=== PATIENT | male | born 1985 | race Caucasian/White ===

== ENCOUNTER 2021-01-22 13:34 | Emergency (ER) | payer MEDICARE, OTHER ==
[2021-01-22 13:46] VITALS: TEMP 98
--- NOTE | 2021-01-22 14:08 | ED ---
General Adult HPI - General Source: patient, family, EMS, RN notes reviewed, old records reviewed Mode of arrival: EMS <Bridger Pathak - Last Filed: 01/22/21 14:06> <Davy Medrano - Last Filed: 01/22/21 18:28> - General Chief complaint: Psychiatric Symptoms Stated complaint: mental health Time Seen by Provider: 01/22/21 13:59 - History of Present Illness Initial comments: 35-year-old male resents for psychiatric evaluation. Patient had threatened to stab himself. He does have a developmental delay. According to his father who is bedside he's had a recent medication change. He has been aggressive at home. Patient denies ingestion. Denies any self-harm. (Bridger Pathak) Review of Systems ROS Other: All systems not noted in ROS Statement are negative. <Bridger Pathak - Last Filed: 01/22/21 14:06> ROS Other: All systems not noted in ROS Statement are negative. <Davy Medrano - Last Filed: 01/22/21 18:28> ROS Statement: Those systems with pertinent positive or pertinent negative responses have been documented in the HPI. 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 Pt alone at this time. Smoking Status: Unknown if ever smoked <Bridger Pathak - Last Filed: 01/22/21 14:06> General Exam General appearance: alert, in no apparent distress Head exam: Present: atraumatic, normocephalic Eye exam: Present: normal appearance, PERRL ENT exam: Present: normal exam Neck exam: Present: normal inspection. Absent: tenderness, meningismus Respiratory exam: Present: normal lung sounds bilaterally. Absent: respiratory distress, wheezes Cardiovascular Exam: Present: regular rate, normal rhythm GI/Abdominal exam: Present: soft. Absent: distended, tenderness, guarding Extremities exam: Present: normal inspection, normal capillary refill Neurological exam: Present: alert. Absent: motor sensory deficit Psychiatric exam: Present: depressed, flat affect Skin exam: Present: warm, dry, intact <Bridger Pathak - Last Filed: 01/22/21 14:06> Course <Bridger Pathak - Last Filed: 01/22/21 14:06> Vital Signs 01/22/21 13:39 Temperature 98.0 F Pulse Rate 111 H Respiratory 18 Rate Blood Pressure 126/92 O2 Sat by Pulse 95 Oximetry - Reevaluation(s) Reevaluation #1: 01/22/21 14:07 Patient medically cleared for EPS. (Bridger Pathak) Reevaluation #2: 01/22/21 1500 Patient's care is signed out at shift change to Dr. Medrano (Bridger Pathak) Medical Decision Making <Davy Medrano - Last Filed: 01/22/21 18:28> - Medical Decision Making Patient evaluated by EPS recommended discharge with outpatient safety plan. (Davy Medrano) Disposition <Bridger Pathak - Last Filed: 01/22/21 14:06> Is patient prescribed a controlled substance at d/c from ED?: No <Davy Medrano - Last Filed: 01/22/21 18:28> Clinical Impression: Suicidal ideation Disposition: HOME SELF-CARE Condition: Fair Instructions (If sedation given, give patient instructions): Suicide Prevention (ED) Referrals: Stefani Forte DO [Primary Care Provider] - 1-2 days
[2021-01-22 19:16] VITALS: BP 122/76; PULSE 79; RESP 16
== END 2021-01-22 19:16 | disposition home or self-care (01) ==
LOC: EC 13:34 → EEVIPCON 13:34 → EC 19:16
DX: R45.851 Suicidal ideations (principal); F32.9 Major depressive disorder, single episode, unspecified; R62.50 Unspecified lack of expected normal physiological development in childhood
CPT/HCPCS: 82075; 99284

== ENCOUNTER 2021-06-08 15:57 | Emergency (ER) | payer MEDICARE, OTHER ==
[2021-06-08 16:12] VITALS: TEMP 98.1
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
[2021-06-08 22:04] LABS: Cocaine Screen,Urine Not Detected (NotDetected); Phencyclidine Screen,Urine Not Detected (NotDetected)
[2021-06-08 22:05] LABS: Amphetamine Screen,Urine Detected (NotDetected); Barbiturate Screen,Urine Not Detected (NotDetected); Benzodiazepines Screen,Urine Detected (NotDetected); Methadone Screen, Urine Not Detected (NotDetected); Opiate Screen,Urine Not Detected (NotDetected); Oxycodone Screen, Urine Not Detected (NotDetected); Tricyclic Antidepressant,Urine Not Detected (NotDetected); Urn Cannabinoid Scrn Not Detected (NotDetected)
[2021-06-09 06:42] VITALS: BP 134/78; PULSE 71; RESP 18
== END 2021-06-09 06:42 | disposition home or self-care (01) ==
LOC: EC 15:57
DX: F39 Unspecified mood [affective] disorder (principal); Z20.822 Contact with and (suspected) exposure to COVID-19; Z79.899 Other long term (current) drug therapy
CPT/HCPCS: 80306; 82075; 87635; 99283

== ENCOUNTER 2021-10-26 20:41 | Emergency (ER) | payer MEDICARE, OTHER ==
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
--- NOTE | 2021-10-26 22:00 | XR ---
EXAMINATION TYPE: XR chest 2V DATE OF EXAM: 10/26/2021 COMPARISON: 12/02/2010 HISTORY: Chest pain TECHNIQUE: FINDINGS: There is small linear density left midlung field. The other lung bains are clear. There ar e no hilar masses. Costophrenic angles are clear. Bony thorax is intact. IMPRESSION: Mild subsegmental atelectasis in the left midlung is new compared to old exam. Normal hea rt.
[2021-10-26] MEDS ORDERED: LORazepam 1 MG TAB PO PRN (23:58)
[2021-10-27] MEDS ORDERED: traZODone HCL 100 MG TAB PO PRN
[2021-10-27 08:23] VITALS: BP 146/96; PULSE 81; RESP 18; TEMP 98.4
[2021-10-27] MEDS ORDERED: AMPHETAMINE PO SCH (09:00)
[2021-10-27] MEDS ORDERED: metFORMIN 500 MG TAB PO SCH (09:00)
[2021-10-27] MEDS ORDERED: DEXTROAMPHETAMINE PO SCH (09:00)
[2021-10-27] MEDS ORDERED: levETIRAcetam 250 MG TAB PO SCH (09:00)
[2021-10-27] MEDS ORDERED: ESCITALOPRAM 5 MG TAB PO SCH (09:00)
[2021-10-27] MEDS ORDERED: ATORVASTATIN 10 MG TAB PO SCH (21:00)
[2021-10-27] MEDS ORDERED: levETIRAcetam 500 MG TAB PO SCH (21:00)
[2021-10-27] MEDS ORDERED: OLANZapine 10 MG TAB PO SCH (21:00)
== END 2021-10-27 09:09 | disposition home or self-care (01) ==
LOC: EEVIPCON 20:41 → EC 20:41
DX: F43.20 Adjustment disorder, unspecified (principal); M25.561 Pain in right knee; M25.562 Pain in left knee
CPT/HCPCS: 71046; 82075; 99283

== ENCOUNTER 2021-12-06 13:51 | Emergency (ER) | payer MEDICARE, OTHER ==
[2021-12-06 14:07] VITALS: BP 118/80; RESP 16; TEMP 98.6
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
[2021-12-06 14:59] VITALS: PULSE 67
[2021-12-06 15:11] LABS: Amphetamine Screen,Urine Detected (NotDetected); Barbiturate Screen,Urine Not Detected (NotDetected); Benzodiazepines Screen,Urine Detected (NotDetected); Cocaine Screen,Urine Not Detected (NotDetected); Methadone Screen, Urine Not Detected (NotDetected); Opiate Screen,Urine Not Detected (NotDetected); Oxycodone Screen, Urine Not Detected (NotDetected); Phencyclidine Screen,Urine Not Detected (NotDetected); Tricyclic Antidepressant,Urine Not Detected (NotDetected); Urn Cannabinoid Scrn Not Detected (NotDetected)
== END 2021-12-06 20:00 | disposition home or self-care (01) ==
LOC: EC 13:51
DX: F32.A Depression, unspecified (principal); F99 Mental disorder, not otherwise specified
CPT/HCPCS: 80306; 82075; 99285

== ENCOUNTER 2022-01-22 18:32 | Emergency (ER) | payer MEDICARE, OTHER ==
[2022-01-22 18:51] VITALS: BP 156/99; PULSE 91; RESP 16; TEMP 97.6
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
[2022-01-22] MEDS ORDERED: LORazepam 2 MG/ML INJ IM STA (20:06)
== END 2022-01-23 00:42 | disposition home or self-care (01) ==
LOC: EEVIPCON 18:32 → EC 18:32
DX: F32.A Depression, unspecified (principal); F84.9 Pervasive developmental disorder, unspecified; Z79.899 Other long term (current) drug therapy
CPT/HCPCS: 82075; 99284; 96372; J2060

== ENCOUNTER 2022-06-03 18:06 | Emergency (ER) | payer MEDICARE, OTHER ==
[2022-06-03 19:13] LABS: Amphetamine Screen,Urine Not Detected (NotDetected); Barbiturate Screen,Urine Not Detected (NotDetected); Benzodiazepines Screen,Urine Not Detected (NotDetected); Cocaine Screen,Urine Not Detected (NotDetected); Methadone Screen, Urine Not Detected (NotDetected); Opiate Screen,Urine Not Detected (NotDetected); Oxycodone Screen, Urine Not Detected (NotDetected); Phencyclidine Screen,Urine Not Detected (NotDetected); Tricyclic Antidepressant,Urine Not Detected (NotDetected); Urn Cannabinoid Scrn Not Detected (NotDetected)
[2022-06-03 20:00] VITALS: BP 127/84; PULSE 85; RESP 14; TEMP 97.8
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
== END 2022-06-03 21:24 | disposition home or self-care (01) ==
LOC: EC 18:06
DX: R45.86 Emotional lability (principal)
CPT/HCPCS: 80306; 82075; 99285

== ENCOUNTER 2023-01-31 10:38 | Emergency (ER) | payer MEDICARE, OTHER ==
[2023-01-31] MEDS ORDERED: SODIUM CHLORIDE 0.9% 1,000 ML IV STA (10:52)
[2023-01-31] MEDS ORDERED: ONDANSETRON 4 MG/2 ML VIAL IVP STA (10:54)
--- NOTE | 2023-01-31 10:59 | ED ---
Seizure HPI - General Chief Complaint: Seizure Stated Complaint: Seizure Time Seen by Provider: 01/31/23 10:41 Source: patient, family, EMS, RN notes reviewed Mode of arrival: EMS Limitations: physical limitation - History of Present Illness Initial Comments: This is a 37-year-old male who presents to the emergency department for a seizure. Patient was at home this morning, and his father states that he had 2 seizures, at approximately 5 AM and 7:30 AM. He did completely recover between each seizure. He did not sustain any injuries, and was in a recliner when they happened. His father is unsure how long the seizures lasted. He was postictal afterwards. He has a history of seizures, however his father is unsure when his last seizure was. He was just discharged from [facility] a couple of days ago, and his father is also unsure what medication he is supposed to be taking. Patient does have cognitive impairment and functions at the level of a 7-year-old, and is having difficulty providing information himself. EMS did put him on supplemental oxygen. Patient unable to understand the question as to whether or not he has difficulty breathing. Denies any pain. MD Complaint: seizure Description of Episode: loss of consciousness, tonic-clonic movement - Related Data Home Medications Medication Instructions Recorded Confirmed ARIPiprazole [Abilify] 20 mg PO HS 01/22/22 01/22/22 Cholecalciferol (Vitamin D3) 125 mcg PO DAILY 01/22/22 01/22/22 [Vitamin D3 (125 MCG = 5,000 IU)] Dextroamphetamine/Amphetamine 5 mg PO DAILY 01/22/22 01/22/22 [Adderall Xr] Escitalopram [Lexapro] 5 mg PO DAILY 01/22/22 01/22/22 LORazepam [Ativan] 1 mg PO BID PRN 01/22/22 01/22/22 Nitroglycerin Sl Tabs [Nitrostat] 0.4 mg SUBLINGUAL Q5M PRN 01/22/22 01/22/22 OLANZapine 20 mg PO HS 01/22/22 01/22/22 Simvastatin [Zocor] 10 mg PO DAILY@1700 01/22/22 01/22/22 Vitamin B Complex 1 cap PO DAILY 01/22/22 01/22/22 levETIRAcetam [Keppra] 250 mg PO TID 01/22/22 01/22/22 metFORMIN HCL [Glucophage] 1,000 mg PO BID 01/22/22 01/22/22 traZODone HCL [Desyrel] 100 mg PO HS 01/22/22 01/22/22 Allergies Allergy/AdvReac Type Severity Reaction Status Date / Time No Known Allergies Allergy Verified 01/31/23 12:32 Review of Systems ROS Statement: Those systems with pertinent positive or pertinent negative responses have been documented in the HPI. ROS Other: All systems not noted in ROS Statement are negative. 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 History of Any Multi-Drug Resistant Organisms: None Reported Past Surgical History: No Surgical Hx Reported Past Psychological History: No Psychological Hx Reported Smoking Status: Never smoker Past Alcohol Use History: None Reported Past Drug Use History: None Reported General Exam Limitations: physical limitation General appearance: alert, in no apparent distress Head exam: Present: atraumatic, normocephalic, normal inspection Respiratory exam: Present: normal lung sounds bilaterally. Absent: respiratory distress, wheezes, rales, rhonchi, stridor Cardiovascular Exam: Present: regular rate, normal rhythm, normal heart sounds. Absent: systolic murmur, diastolic murmur, rubs, gallop, clicks Neurological exam: Present: alert Psychiatric exam: Present: normal affect, normal mood Skin exam: Present: warm, dry, intact, normal color. Absent: rash Course Vital Signs 01/31/23 01/31/23 01/31/23 10:45 11:00 12:00 Temperature 99.7 F H Pulse Rate 113 H 108 H 106 H Respiratory 22 16 16 Rate Blood Pressure 117/79 123/85 117/79 O2 Sat by Pulse 90 L 92 L 95 Oximetry 01/31/23 01/31/23 01/31/23 12:30 13:00 13:30 Temperature Pulse Rate 98 101 H 102 H Respiratory 16 14 14 Rate Blood Pressure 139/80 115/70 102/74 O2 Sat by Pulse 99 99 94 L Oximetry 01/31/23 01/31/23 01/31/23 13:35 14:00 14:30 Temperature 97.7 F Pulse Rate 100 101 H 103 H Respiratory 20 14 14 Rate Blood Pressure 114/65 108/68 130/80 O2 Sat by Pulse 94 L 95 95 Oximetry 01/31/23 01/31/23 15:00 15:30 Temperature 97.2 F L Pulse Rate 99 98 Respiratory 14 14 Rate Blood Pressure 132/81 113/71 O2 Sat by Pulse 96 96 Oximetry Medical Decision Making - Medical Decision Making This is a 37-year-old male who presents to the emergency department for a s eizure. Was pt. sent in by a medical professional or institution? @ -No Did you speak to anyone other than the patient for history? @ -His father provided the majority of the information, with the patient just saying that he was not experiencing any pain. Did you review nursing and triage notes? @ -Yes, and I agree, it is accurate with regards to the patient's symptoms. Were old charts reviewed? @ -No Differential Diagnosis? @ -Differential Seizure: Recurrent seizure disorder, febrile seizure, alcohol withdrawal, stimulants, meningitis, encephalitis, intercranial hemorrhage, intracranial tumor, stroke, eclampsia, thyrotoxicosis, hypocalcemia, hyponatremia, hypernatremia, hypomagnesemia, psychogenic, this is not meant to be an all-inclusive list. EKG interpreted by me (3pts min.)? @ -EKG interpreted by me demonstrating the following: Sinus tachycardia. Ventricular rate 108 beats per minute, WI interval 156 ms, QRS duration 106 ms, QTC 404 ms. X-rays interpreted by me (1pt min.)? @ -Chest x-ray obtained, my interpretation identifies no localized consolidations or infiltrates. CT interpreted by me (1pt min.)? @ -Not obtained U/S interpreted by me (1pt. min.)? @ -Not obtained What testing was considered but not performed? (CT, X-rays, U/S, labs)? Why? @ -None What meds were considered but not given? Why? @ -None Did you discuss the management of the patient with other professionals? @ -No Did you reconcile home meds? @ -No Was smoking cessation discussed for >3mins.? @ -No Was critical care preformed (if so, how long)? @ -No Were there social determinants of health that impacted care today? How? (Homelessness, low income, unemployed, alcoholism, drug addiction, transportation, low edu. Level, literacy, decrease access to med. care, intermediate, rehab)? @ -No Was there de-escalation of care discussed even if they declined? (Discuss DNR or withdrawal of care, Hospice)? @ -No What co-morbidities impacted this encounter? (DM, HTN, Smoking, COPD, CAD, Cancer, CVA, Hep., AIDS, mental health diagnosis, sleep apnea, morbid obesity)? @ -Seizure disorder, mental retardation Was patient admitted / discharged? @ -Discharged. Lab work obtained revealing mild leukocytosis and elevated lactic acid, consistent with the recent seizure. Lab work was otherwise nonactionable. Chest x-ray reveals no acute process. He was given a liter bolus of IV fluids and Zofran, as he had previously thrown up on himself during the seizure. Per patient's family, he was back to baseline. Discussed with the family that he can be safely discharged home. He is instructed to continue taking his medications as prescribed and follow up with his PCP and neurologist. Undiagnosed new problem with uncertain prognosis? @ -None Drug Therapy requiring intensive monitoring for toxicity (Heparin, Nitro, Insulin, Cardizem)? @ -None Were any procedures done? @ -None Diagnosis/symptom? @ -Generalized seizure Acute, or Chronic, or Acute on Chronic? @ -Acute Uncomplicated (without systemic symptoms) or Complicated (systemic symptoms)? @ -Uncomplicated Side effects of treatment? @ -None Exacerbation, Progression, or Severe Exacerbation] @ -Not applicable Poses a threat to life or bodily function? @ -No Return precautions reviewed in depth, the patient is instructed to return to the emergency department with any new, worsening, or concerning symptoms. Patient's father verbalized understanding. This case was discussed in detail with the attending ED physician, Dr. Pathak. Presentation, findings, and treatment plan discussed in detail as well. - Lab Data Result diagrams: 01/31/23 11:00 01/31/23 11:00 Lab Results 01/31/23 01/31/23 01/31/23 Range/Units 11:00 11:00 11:00 WBC 13.3 H (3.8-10.6) k/uL RBC 5.27 (4.30-5.90) m/uL Hgb 14.0 (13.0-17.5) gm/dL Hct 42.2 (39.0-53.0) % MCV 80.0 (80.0-100.0) fL MCH 26.6 (25.0-35.0) pg MCHC 33.2 (31.0-37.0) g/dL RDW 14.1 (11.5-15.5) % Plt Count 253 (150-450) k/uL MPV 8.4 Neutrophils % 79 % Lymphocytes % 13 % Monocytes % 6 % Eosinophils % 1 % Basophils % 0 % Neutrophils # 10.5 H (1.3-7.7) k/uL Lymphocytes # 1.8 (1.0-4.8) k/uL Monocytes # 0.8 (0-1.0) k/uL Eosinophils # 0.1 (0-0.7) k/uL Basophils # 0.0 (0-0.2) k/uL Sodium 140 (137-145) mmol/L Potassium 4.0 (3.5-5.1) mmol/L Chloride 105 (98-107) mmol/L Carbon Dioxide 23 (22-30) mmol/L Anion Gap 12 mmol/L BUN 12 (9-20) mg/dL Creatinine 0.83 (0.66-1.25) mg/dL Est GFR (CKD-EPI)AfAm >90 (>60 ml/min/1.73 sqM) Est GFR (CKD-EPI)NonAf >90 (>60 ml/min/1.73 sqM) Glucose 123 H (74-99) mg/dL Lactic Ac Sepsis Rflx Plasma Lactic Acid Rodo (0.7-2.0) mmol/L Calcium 9.3 (8.4-10.2) mg/dL Magnesium 2.3 (1.6-2.3) mg/dL Total Bilirubin 0.3 (0.2-1.3) mg/dL AST 24 (17-59) U/L ALT 26 (4-49) U/L Alkaline Phosphatase 89 (38-126) U/L Creatine Kinase 52 L (55-170) U/L Total Protein 7.5 (6.3-8.2) g/dL Albumin 4.3 (3.5-5.0) g/dL Urine Color Yellow Urine Appearance Clear (Clear) Urine pH 5.5 (5.0-8.0) Ur Specific [place] 1.023 (1.001-1.035) Urine Protein Trace H (Negative) Urine Glucose (UA) Negative (Negative) Urine Ketones 1+ H (Negative) Urine Blood Negative (Negative) Urine Nitrite Negative (Negative) Urine Bilirubin Negative (Negative) Urine Urobilinogen <2.0 (<2.0) mg/dL Ur Leukocyte Esterase Negative (Negative) Influenza Type A (PCR) (Not Detectd) Influenza Type B (PCR) (Not Detectd) RSV (PCR) (Not Detectd) SARS-CoV-2 (PCR) (Not Detectd) 01/31/23 01/31/23 01/31/23 Range/Units 11:00 11:00 12:56 WBC (3.8-10.6) k/uL RBC (4.30-5.90) m/uL Hgb (13.0-17.5) gm/dL Hct (39.0-53.0) % MCV (80.0-100.0) fL MCH (25.0-35.0) pg MCHC (31.0-37.0) g/dL RDW (11.5-15.5) % Plt Count (150-450) k/uL MPV Neutrophils % % Lymphocytes % % Monocytes % % Eosinophils % % Basophils % % Neutrophils # (1.3-7.7) k/uL Lymphocytes # (1.0-4.8) k/uL Monocytes # (0-1.0) k/uL Eosinophils # (0-0.7) k/uL Basophils # (0-0.2) k/uL Sodium (137-145) mmol/L Potassium (3.5-5.1) mmol/L Chloride (98-107) mmol/L Carbon Dioxide (22-30) mmol/L Anion Gap mmol/L BUN (9-20) mg/dL Creatinine (0.66-1.25) mg/dL Est GFR (CKD-EPI)AfAm (>60 ml/min/1.73 sqM) Est GFR (CKD-EPI)NonAf (>60 ml/min/1.73 sqM) Glucose (74-99) mg/dL Lactic Ac Sepsis Rflx Y Plasma Lactic Acid Rodo 3.6 H* (0.7-2.0) mmol/L Calcium (8.4-10.2) mg/dL Magnesium (1.6-2.3) mg/dL Total Bilirubin (0.2-1.3) mg/dL AST (17-59) U/L ALT (4-49) U/L Alkaline Phosphatase (38-126) U/L Creatine Kinase (55-170) U/L Total Protein (6.3-8.2) g/dL Albumin (3.5-5.0) g/dL Urine Color Urine Appearance (Clear) Urine pH (5.0-8.0) Ur Specific [place] (1.001-1.035) Urine Protein (Negative) Urine Glucose (UA) (Negative) Urine Ketones (Negative) Urine Blood (Negative) Urine Nitrite (Negative) Urine Bilirubin (Negative) Urine Urobilinogen (<2.0) mg/dL Ur Leukocyte Esterase (Negative) Influenza Type A (PCR) Not Detected (Not Detectd) Influenza Type B (PCR) Not Detected (Not Detectd) RSV (PCR) Not Detected (Not Detectd) SARS-CoV-2 (PCR) Not Detected (Not Detectd) - Radiology Data Radiology results: report reviewed, image reviewed Disposition Clinical Impression: Generalized seizure Disposition: HOME SELF-CARE Instructions (If sedation given, give patient instructions): Seizure/Epilepsy Discharge Instructions & Follow-Up Additional Instructions: Return to the emergency department with any new, worsening, or concerning symptoms. Make sure that you are taking your seizure medication as prescribed. Follow up with your primary care provider in 1-2 days. Is patient prescribed a controlled substance at d/c from ED?: No Referrals: Lalo Lacey MD [Primary Care Provider] - 1-2 days
[2023-01-31 12:08] LABS: Basophils % (A) 0 %; Eosinophils # (A) 0.1 k/uL (0-0.7); Eosinophils % (A) 1 %; HCT 42.2 % (39.0-53.0); Lymphocytes # (A) 1.8 k/uL (1.0-4.8); Lymphocytes % (A) 13 %; MCH 26.6 pg (25.0-35.0); MCHC 33.2 g/dL (31.0-37.0); Mean Platelet Volume 8.4; Monocytes # (A) 0.8 k/uL (0-1.0); Monocytes % (A) 6 %; Neutrophils # (A) 10.5 k/uL (1.3-7.7); Neutrophils % (A) 79 %; Platelet Count 253 k/uL (150-450); RBC 5.27 m/uL (4.30-5.90); RDW 14.1 % (11.5-15.5); WBC 13.3 k/uL (3.8-10.6)
[2023-01-31 12:35] LABS: Appearance,Urine Clear (Clear); Bilirubin,Urine Negative (Negative); Blood,Urine Negative (Negative); Color,Urine Yellow; Glucose,Urine (UA) Negative (Negative); Ketones,Urine 1+ (Negative); Leukocyte Esterase,Urine Negative (Negative); Nitrite,Urine Negative (Negative); PH, Urine 5.5 (5.0-8.0); Protein,Urine Trace (Negative); Specific Gravity,Urine 1.023 (1.001-1.035); Urobilinogen,Urine <2.0 mg/dL (<2.0)
[2023-01-31 12:36] LABS: ALT 26 U/L (4-49); AST 24 U/L (17-59); African American GFR (CKD) >90 (>60 ml/min/1.73 sqM); Albumin 4.3 g/dL (3.5-5.0); Alkaline Phosphatase 89 U/L (38-126); Anion Gap 12 mmol/L; Blood Urea Nitrogen 12 mg/dL (9-20); Calcium 9.3 mg/dL (8.4-10.2); Carbon Dioxide 23 mmol/L (22-30); Chloride 105 mmol/L (98-107); Creatine Kinase 52 U/L (55-170); Glucose 123 mg/dL (74-99); Magnesium 2.3 mg/dL (1.6-2.3); Non-African American GFR(CKD) >90 (>60 ml/min/1.73 sqM); Sodium 140 mmol/L (137-145); Total Bilirubin 0.3 mg/dL (0.2-1.3); Total Protein 7.5 g/dL (6.3-8.2)
--- NOTE | 2023-01-31 12:51 | XR ---
EXAMINATION TYPE: XR chest 2V DATE OF EXAM: 01/31/2023 COMPARISON: 10/26/2021 INDICATION: Seizure, low oxygen TECHNIQUE: Frontal and lateral views of the chest are obtained. FINDINGS: The heart size is enlarged. The pulmonary vasculature is normal. The lungs are clear. IMPRESSION: 1. Cardiomegaly. 2. No acute pulmonary process
[2023-01-31 15:45] VITALS: BP 113/71; PULSE 98; RESP 14; TEMP 97.2
== END 2023-01-31 15:40 | disposition home or self-care (01) ==
LOC: EC 10:38
DX: G40.409 Other generalized epilepsy and epileptic syndromes, not intractable, without status epilepticus (principal); Z20.822 Contact with and (suspected) exposure to COVID-19
CPT/HCPCS: 36415; 93005; 80053; 82550; 83605; 83735; 85025; 81003; 87636; 71046; 99285; 96374; 96361; J2405

== ENCOUNTER 2024-02-04 20:08 | Emergency (ER) | payer BC, MEDICARE, OTHER | END 2024-02-05 04:01 | disposition home or self-care (01) | LOC: EC 20:08 | DX: R45.851 Suicidal ideations (principal) | CPT/HCPCS: 99284 ==

== ENCOUNTER 2024-03-11 01:49 | Emergency (ER) | payer MEDICARE, OTHER, BC ==
--- NOTE | 2024-03-11 02:22 | ED ---
General Adult HPI - General Chief complaint: Seizure Stated complaint: Seizure Time Seen by Provider: 03/11/24 01:50 Source: patient, family, RN notes reviewed, old records reviewed Mode of arrival: EMS Limitations: altered mental status, physical limitation - History of Present Illness Initial comments: 38-year-old male presenting with father for evaluation. Paramedics had been called for lift assist. Patient he had been difficult to get up after sliding out of his chair. There was no witnessed seizure activity but paramedics did report a concern for seizure with postictal state. History is obtained predominantly from the father who is at bedside. Patient history is limited due to cognitive delay. - Related Data Home Medications Medication Instructions Recorded Confirmed ARIPiprazole [Abilify] 20 mg PO HS 01/22/22 01/22/22 Cholecalciferol (Vitamin D3) 125 mcg PO DAILY 01/22/22 01/22/22 [Vitamin D3 (125 MCG = 5,000 IU)] Dextroamphetamine/Amphetamine 5 mg PO DAILY 01/22/22 01/22/22 [Adderall Xr] Escitalopram [Lexapro] 5 mg PO DAILY 01/22/22 01/22/22 LORazepam [Ativan] 1 mg PO BID PRN 01/22/22 01/22/22 Nitroglycerin Sl Tabs [Nitrostat] 0.4 mg SUBLINGUAL Q5M PRN 01/22/22 01/22/22 OLANZapine 20 mg PO HS 01/22/22 01/22/22 Simvastatin [Zocor] 10 mg PO DAILY@1700 01/22/22 01/22/22 Vitamin B Complex 1 cap PO DAILY 01/22/22 01/22/22 levETIRAcetam [Keppra] 250 mg PO TID 01/22/22 01/22/22 metFORMIN HCL [Glucophage] 1,000 mg PO BID 01/22/22 01/22/22 traZODone HCL [Desyrel] 100 mg PO HS 01/22/22 01/22/22 Allergies Allergy/AdvReac Type Severity Reaction Status Date / Time No Known Allergies Allergy Verified 01/31/23 12:32 Review of Systems ROS Statement: Those systems with pertinent positive or pertinent negative responses have been documented in the HPI. ROS Other: All systems not noted in ROS Statement are negative. 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 History of Any Multi-Drug Resistant Organisms: None Reported Past Surgical History: No Surgical Hx Reported Past Psychological History: No Psychological Hx Reported Smoking Status: Never smoker Past Alcohol Use History: None Reported Past Drug Use History: None Reported General Exam Limitations: altered mental status, physical limitation General appearance: alert, in no apparent distress Head exam: Present: atraumatic, normocephalic Eye exam: Present: normal appearance, PERRL ENT exam: Present: mucous membranes moist, other (No tongue abrasion or laceration) Respiratory exam: Present: normal lung sounds bilaterally. Absent: respiratory distress, wheezes Cardiovascular Exam: Present: regular rate, normal rhythm GI/Abdominal exam: Present: soft. Absent: distended, tenderness Neurological exam: Present: alert. Absent: motor sensory deficit Skin exam: Present: warm, dry, intact. Absent: cyanosis, diaphoretic Course Vital Signs 03/11/24 01:54 Temperature 97.5 F L Pulse Rate 93 Respiratory 16 Rate Blood Pressure 148/97 O2 Sat by Pulse 97 Oximetry Medical Decision Making - Medical Decision Making Was pt. sent in by a medical professional or institution (, PA, OUTBOUND SALES AGENT, urgent care, hospital, or intermediate...) When possible be specific @ -No Did you speak to anyone other than the patient for history (EMS, parent, family, police, friend...)? What history was obtained from this source @ -No Did you review nursing and triage notes (agree or disagree)? Why? @ -I reviewed and agree with nursing and triage notes Were old charts reviewed (outside hosp., previous admission, EMS record, old EKG, old radiological studies, urgent care reports/EKG's, intermediate records)? Report findings @ -No old charts were reviewed Differential Weakness: Hypoglycemia, shock, sepsis, hyponatremia, anemia, infection, DE, ETOH, adverse medicine reaction, overdose, stroke, this is not meant to be an all-inclusive list. Differential Seizure: Recurrent seizure disorder, febrile seizure, alcohol withdrawal, stimulants, meningitis, encephalitis, intercranial hemorrhage, intracranial tumor, stroke, eclampsia, thyrotoxicosis, hypocalcemia, hyponatremia, hypernatremia, hypomagnesemia, psychogenic, this is not meant to be an all-inclusive list. EKG interpreted by me (3pts min.). @ -[Sinus rhythm rate of 92, CT interval 140, QRS duration 109, QTc 412 X-rays interpreted by me (1pt min.). @ -None done CT interpreted by me (1pt min.). @ -None done U/S interpreted by me (1pt. min.). @ -None done What testing was considered but not performed or refused? (CT, X-rays, U/S, labs)? Why? @ -None What meds were considered but not given or refused? Why? @ -None Did you discuss the management of the patient with other professionals (professionals i.e. Dr., PA, OUTBOUND SALES AGENT, lab, RT, psych nurse, adoption social worker, electronics mechanic apprentice, teacher, surveillance sensor officer, sample case porter)? Give summary @ -No Was smoking cessation discussed for >3mins.? @ -No Was critical care preformed (if so, how long)? @ -No Were there social determinants of health that impacted care today? How? (Homele ssness, low income, unemployed, alcoholism, drug addiction, transportation, low edu. Level, literacy, decrease access to med. care, [facility], rehab)? @ -No Was there de-escalation of care discussed even if they declined (Discuss DNR or withdrawal of care, Hospice)? DNR status @ -No What co-morbidities impacted this encounter? (DM, HTN, Smoking, COPD, CAD, Cancer, CVA, ARF, Chemo, Hep., AIDS, mental health diagnosis, sleep apnea, morbid obesity)? @ -[Cognitive delay, diabetes Was patient admitted / discharged? Hospital course, mention meds given and route, prescriptions, significant lab abnormalities, going to OR and other pertinent info. @38-year-old male with weakness, cognitive delay, history limited. Vital signs are stable. The patient is in sinus rhythm. I did obtain laboratory test including CBC, CMP, troponin level. Testing is unremarkable. Father is reassured and is comfortable taking the patient home with return parameters. Undiagnosed new problem with uncertain prognosis? @ -No Drug Therapy requiring intensive monitoring for toxicity (Heparin, Nitro, Insulin, Cardizem)? @ -No Were any procedures done? @ -No Diagnosis/symptom? @Weakness Acute, or Chronic, or Acute on Chronic? @ -Acute Uncomplicated (without systemic symptoms) or Complicated (systemic symptoms)? @ -Default Side effects of treatment? @ -No Exacerbation, Progression, or Severe Exacerbation? @ -No Poses a threat to life or bodily function? How? (Chest pain, USA, DE, pneumonia, PE, COPD, DKA, ARF, appy, cholecystitis, CVA, Diverticulitis, Homicidal, Suicidal, threat to staff... and all critical care pts) @ -Low risk at this time - Lab Data Result diagrams: 03/11/24 02:47 03/11/24 02:47 Lab Results 03/11/24 03/11/24 03/11/24 Range/Units 02:05 02:47 02:47 WBC 12.2 H (3.8-10.6) k/uL RBC 5.19 (4.30-5.90) m/uL Hgb 13.7 (13.0-17.5) gm/dL Hct 41.1 (39.0-53.0) % MCV 79.2 L (80.0-100.0) fL MCH 26.3 (25.0-35.0) pg MCHC 33.2 (31.0-37.0) g/dL RDW 15.0 (11.5-15.5) % Plt Count 236 (150-450) k/uL MPV 8.3 Neutrophils % 67 % Lymphocytes % 22 % Monocytes % 5 % Eosinophils % 5 % Basophils % 1 % Neutrophils # 8.2 H (1.3-7.7) k/uL Lymphocytes # 2.7 (1.0-4.8) k/uL Monocytes # 0.6 (0-1.0) k/uL Eosinophils # 0.5 (0-0.7) k/uL Basophils # 0.1 (0-0.2) k/uL PT (10.0-12.5) sec INR (<1.2) APTT (22.0-30.0) sec Sodium 140 (137-145) mmol/L Potassium 3.9 (3.5-5.1) mmol/L Chloride 104 (98-107) mmol/L Carbon Dioxide 26 (22-30) mmol/L Anion Gap 10 mmol/L BUN 11 (9-20) mg/dL Creatinine 0.78 (0.66-1.25) mg/dL Est GFR (CKD-EPI)AfAm >90 (>60 ml/min/1.73 sqM) Est GFR (CKD-EPI)NonAf >90 (>60 ml/min/1.73 sqM) Glucose 172 H (74-99) mg/dL Calcium 9.3 (8.4-10.2) mg/dL Magnesium 2.0 (1.6-2.3) mg/dL Total Bilirubin 0.4 (0.2-1.3) mg/dL AST 21 (17-59) U/L ALT 23 (4-49) U/L Alkaline Phosphatase 87 (38-126) U/L Troponin I (0.000-0.034) ng/mL Total Protein 6.9 (6.3-8.2) g/dL Albumin 4.0 (3.5-5.0) g/dL Influenza Type A (PCR) Not Detected (Not Detectd) Influenza Type B (PCR) Not Detected (Not Detectd) RSV (PCR) Not Detected (Not Detectd) SARS-CoV-2 (PCR) Not Detected (Not Detectd) 03/11/24 03/11/24 Range/Units 02:47 02:47 WBC (3.8-10.6) k/uL RBC (4.30-5.90) m/uL Hgb (13.0-17.5) gm/dL Hct (39.0-53.0) % MCV (80.0-100.0) fL MCH (25.0-35.0) pg MCHC (31.0-37.0) g/dL RDW (11.5-15.5) % Plt Count (150-450) k/uL MPV Neutrophils % % Lymphocytes % % Monocytes % % Eosinophils % % Basophils % % Neutrophils # (1.3-7.7) k/uL Lymphocytes # (1.0-4.8) k/uL Monocytes # (0-1.0) k/uL Eosinophils # (0-0.7) k/uL Basophils # (0-0.2) k/uL PT 10.1 (10.0-12.5) sec INR 0.9 (<1.2) APTT 31.9 H (22.0-30.0) sec Sodium (137-145) mmol/L Potassium (3.5-5.1) mmol/L Chloride (98-107) mmol/L Carbon Dioxide (22-30) mmol/L Anion Gap mmol/L BUN (9-20) mg/dL Creatinine (0.66-1.25) mg/dL Est GFR (CKD-EPI)AfAm (>60 ml/min/1.73 sqM) Est GFR (CKD-EPI)NonAf (>60 ml/min/1.73 sqM) Glucose (74-99) mg/dL Calcium (8.4-10.2) mg/dL Magnesium (1.6-2.3) mg/dL Total Bilirubin (0.2-1.3) mg/dL AST (17-59) U/L ALT (4-49) U/L Alkaline Phosphatase (38-126) U/L Troponin I <0.012 (0.000-0.034) ng/mL Total Protein (6.3-8.2) g/dL Albumin (3.5-5.0) g/dL Influenza Type A (PCR) (Not Detectd) Influenza Type B (PCR) (Not Detectd) RSV (PCR) (Not Detectd) SARS-CoV-2 (PCR) (Not Detectd) Disposition Clinical Impression: Weakness Disposition: HOME SELF-CARE Condition: Fair Instructions (If sedation given, give patient instructions): Weakness (ED) Is patient prescribed a controlled substance at d/c from ED?: No Referrals: Tim Forte MD [Primary Care Provider] - 1-2 days Time of Disposition: 03:52
[2024-03-11 03:10] LABS: Basophils # (A) 0.1 k/uL (0-0.2); Basophils % (A) 1 %; Eosinophils # (A) 0.5 k/uL (0-0.7); Eosinophils % (A) 5 %; HCT 41.1 % (39.0-53.0); HGB 13.7 gm/dL (13.0-17.5); Lymphocytes # (A) 2.7 k/uL (1.0-4.8); Lymphocytes % (A) 22 %; MCH 26.3 pg (25.0-35.0); MCHC 33.2 g/dL (31.0-37.0); MCV 79.2 fL (80.0-100.0); Mean Platelet Volume 8.3; Monocytes # (A) 0.6 k/uL (0-1.0); Monocytes % (A) 5 %; Neutrophils # (A) 8.2 k/uL (1.3-7.7); Neutrophils % (A) 67 %; Platelet Count 236 k/uL (150-450); RBC 5.19 m/uL (4.30-5.90); WBC 12.2 k/uL (3.8-10.6)
[2024-03-11 03:24] LABS: ALT 23 U/L (4-49); AST 21 U/L (17-59); African American GFR (CKD) >90 (>60 ml/min/1.73 sqM); Alkaline Phosphatase 87 U/L (38-126); Anion Gap 10 mmol/L; Blood Urea Nitrogen 11 mg/dL (9-20); Calcium 9.3 mg/dL (8.4-10.2); Carbon Dioxide 26 mmol/L (22-30); Chloride 104 mmol/L (98-107); Glucose 172 mg/dL (74-99); Non-African American GFR(CKD) >90 (>60 ml/min/1.73 sqM); Potassium 3.9 mmol/L (3.5-5.1); Sodium 140 mmol/L (137-145); Total Bilirubin 0.4 mg/dL (0.2-1.3); Total Protein 6.9 g/dL (6.3-8.2)
[2024-03-11 03:46] LABS: INR 0.9 (<1.2); Partial Thromboplastin Time 31.9 sec (22.0-30.0); Prothrombin Time 10.1 sec (10.0-12.5)
[2024-03-11 04:46] VITALS: BP 143/92; PULSE 86; RESP 18; TEMP 98.3
== END 2024-03-11 04:46 | disposition home or self-care (01) ==
LOC: EC 01:49
CPT/HCPCS: 36415; 80053; 83735; 84484; 85025; 85610; 85730; 87636; 93005; 99284

== ENCOUNTER 2024-03-11 10:01 | Emergency (ER) | payer MEDICARE, OTHER ==
[2024-03-11 10:14] VITALS: RESP 18
[2024-03-11 10:15] LABS: Glucose,Whole Blood 164 mg/dL (70-110)
--- NOTE | 2024-03-11 11:29 | ED ---
Altered Mental Status HPI - General Chief Complaint: Altered Mental Status Stated Complaint: AMS Time Seen by Provider: 03/11/24 10:20 Source: patient, RN notes reviewed Mode of arrival: EMS Limitations: no limitations - History of Present Illness Initial Comments: This is a 38-year-old male presents emergency department via EMS for chief complaint of altered mental status. History is quite limited due to patient's intellectual disability. Patient was evaluated in the emergency department earlier today for suppose it seizure and was discharged home in stable condition. It was reported that patient has been weak since discharge and had difficulty getting up where her family called EMS for weakness. Patient believes that he had another seizure however family denies seizure-like activity. - Related Data Home Medications Medication Instructions Recorded Confirmed Nitroglycerin Sl Tabs [Nitrostat] 0.4 mg SUBLINGUAL Q5M PRN 01/22/22 03/11/24 OLANZapine 20 mg PO HS 01/22/22 03/11/24 metFORMIN HCL [Glucophage] 1,000 mg PO BID 01/22/22 03/11/24 Benztropine Mesylate [Cogentin] 1 mg PO BID 03/11/24 03/11/24 Escitalopram [Lexapro] 10 mg PO DAILY 03/11/24 03/11/24 Simvastatin [Zocor] 20 mg PO HS 03/11/24 03/11/24 clonazePAM [KlonoPIN] 1 mg PO TID 03/11/24 03/11/24 haloperidoL [Haldol] 10 mg PO BID 03/11/24 03/11/24 Allergies Allergy/AdvReac Type Severity Reaction Status Date / Time No Known Allergies Allergy Verified 03/11/24 12:25 Review of Systems ROS Statement: Those systems with pertinent positive or pertinent negative responses have been documented in the HPI. ROS Other: All systems not noted in ROS Statement are negative. 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 History of Any Multi-Drug Resistant Organisms: None Reported Past Surgical History: No Surgical Hx Reported Past Psychological History: No Psychological Hx Reported Smoking Status: Never smoker Past Alcohol Use History: None Reported Past Drug Use History: None Reported General Exam Limitations: no limitations (intellecutal disability) General appearance: alert, in no apparent distress Head exam: Present: atraumatic, normocephalic, normal inspection Eye exam: Present: normal appearance, PERRL, EOMI. Absent: scleral icterus, conjunctival injection, periorbital swelling Neck exam: Present: normal inspection. Absent: tenderness, meningismus, lymphadenopathy Respiratory exam: Present: normal lung sounds bilaterally. Absent: respiratory distress, wheezes, rales, rhonchi, stridor Cardiovascular Exam: Present: regular rate, normal rhythm, normal heart sounds. Absent: systolic murmur, diastolic murmur, rubs, gallop, clicks GI/Abdominal exam: Present: soft, normal bowel sounds. Absent: distended, tenderness, guarding, rebound, rigid Extremities exam: Present: normal inspection, full ROM, normal capillary refill. Absent: tenderness, pedal edema, joint swelling, calf tenderness Back exam: Present: normal inspection Skin exam: Present: warm, dry, intact, normal color. Absent: rash Course Vital Signs 03/11/24 03/11/24 03/11/24 10:05 10:14 11:28 Temperature 98.1 F Pulse Rate 93 94 98 Respiratory 18 18 18 Rate Blood Pressure 133/99 148/98 136/104 O2 Sat by Pulse 94 L 95 96 Oximetry 03/11/24 03/11/24 12:32 14:31 Temperature 99.0 F Pulse Rate 99 98 Respiratory 18 18 Rate Blood Pressure 135/94 145/99 O2 Sat by Pulse 96 97 Oximetry Medical Decision Making - Medical Decision Making Was pt. sent in by a medical professional or institution (, PA, SUGAR DRIER, urgent care, hospital, or skilled nursing...) When possible be specific @ -No Did you speak to anyone other than the patient for history (EMS, parent, family, police, friend...)? What history was obtained from this source @ -No Did you review nursing and triage notes (agree or disagree)? Why? @ -I reviewed and agree with nursing and triage notes Were old charts reviewed (outside hosp., previous admission, EMS record, old EKG, old radiological studies, urgent care reports/EKG's, skilled nursing records)? Report findings @ -I reviewed the patient's previous emergency department visit note from earlier today 03/07/2024 where he was brought in via EMS for a left and possible seizure activity however was discharged home in stable condition. Differential Diagnosis (chest pain, altered mental status, abdominal pain women, abdominal pain men, vaginal bleeding, weakness, fever, dyspnea, syncope, headache, dizziness, GI bleed, back pain, seizure, CVA, palpatations, mental health, musculoskeletal)? @ -Differential Weakness: Hypoglycemia, shock, sepsis, hyponatremia, anemia, infection, NC, ETOH, adverse medicine reaction, overdose, stroke, this is not meant to be an all-inclusive list. EKG interpreted by me (3pts min.). @ -Completed at 1126 sinus tachycardia with a ventricular rate of 100, NV interval 150, QTc 406. No acute signs of ischemia. X-rays interpreted by me (1pt min.). @ -None done CT interpreted by me (1pt min.). @ -CT of the brain without contrast reveals no acute intracranial process with no significant change from prior exam U/S interpreted by me (1pt. min.). @ -None done What testing was considered but not performed or refused? (CT, X-rays, U/S, labs)? Why? @ -None What meds were considered but not given or refused? Why? @ -None Did you discuss the management of the patient with other professionals (professionals i.e. , PA, SUGAR DRIER, lab, RT, psych nurse, social media marketer, spot welder line, teacher, staff combat information center officer, manager rn case)? Give summary @ -No Was smoking cessation discussed for >3mins.? @ -No Was critical care preformed (if so, how long)? @ -No Were there social determinants of health that impacted care today? How? (Homelessness, low income, unemployed, alcoholism, drug addiction, transportation, low edu. Level, literacy, decrease access to med. care, retirement, rehab)? @ -No Was there de-escalation of care discussed even if they declined (Discuss DNR or withdrawal of care, Hospice)? DNR status @ -No What co-morbidities impacted this encounter? (DM, HTN, Smoking, COPD, CAD, Cancer, CVA, ARF, Chemo, Hep., AIDS, mental health diagnosis, sleep apnea, morbid obesity)? @ -None Was patient admitted / discharged? Hospital course, mention meds given and route, prescriptions, significant lab abnormalities, going to OR and other pertinent info. @ -discharged. 38-year-old male with altered mental status. On my evaluation the patient it is quite difficult to obtain accurate history due to his mental disabilities. On exam patient is odorous of urine and he is concerned that he believes he may have had another seizure earlier today. This preemptively treated with Keppra and IV fluids pending laboratory evaluation and CT imaging. CBC reveals mild leukocytosis of 12.8, neutrophils 9.4 which is unchanged from previous lab work that was done earlier today. CMP unremarkable UA negative for signs of infection, 1+ ketones consistent with dehydration. CT of the brain is negative for acute process. Patient is stable for discharge home and follow-up outpatient with primary care provider as there are no acute laboratory processes at this time. All questions answered at bedside strict return parameters as the patient is verbalized understanding. Case discussed with Dr. Levin. Undiagnosed new problem with uncertain prognosis? @ -No Drug Therapy requiring intensive monitoring for toxicity (Heparin, Nitro, Insulin, Cardizem)? @ -No Were any procedures done? @ -No Diagnosis/symptom? @ -weakness Acute, or Chronic, or Acute on Chronic? @ -acute Uncomplicated (without systemic symptoms) or Complicated (systemic symptoms)? @ -Uncomplicated Side effects of treatment? @ -No Exacerbation, Progression, or Severe Exacerbation? @ -No Poses a threat to life or bodily function? How? (Chest pain, USA, NC, pneumonia, PE, COPD, DKA, ARF, appy, cholecystitis, CVA, Diverticulitis, Homicidal, Suicidal, threat to staff... and all critical care pts) @ -No - Lab Data Result diagrams: 03/11/24 11:26 03/11/24 11:26 Lab Results 03/11/24 03/11/24 03/11/24 Range/Units 10:13 11:26 11:26 WBC 12.8 H (3.8-10.6) k/uL RBC 5.29 (4.30-5.90) m/uL Hgb 13.9 (13.0-17.5) gm/dL Hct 42.2 (39.0-53.0) % MCV 79.7 L (80.0-100.0) fL MCH 26.2 (25.0-35.0) pg MCHC 32.9 (31.0-37.0) g/dL RDW 15.2 (11.5-15.5) % Plt Count 230 (150-450) k/uL MPV 8.4 Neutrophils % 74 % Lymphocytes % 17 % Monocytes % 5 % Eosinophils % 3 % Basophils % 0 % Neutrophils # 9.4 H (1.3-7.7) k/uL Lymphocytes # 2.2 (1.0-4.8) k/uL Monocytes # 0.7 (0-1.0) k/uL Eosinophils # 0.4 (0-0.7) k/uL Basophils # 0.1 (0-0.2) k/uL PT 10.0 (10.0-12.5) sec INR 0.9 (<1.2) APTT 31.2 H (22.0-30.0) sec Sodium (137-145) mmol/L Potassium (3.5-5.1) mmol/L Chloride (98-107) mmol/L Carbon Dioxide (22-30) mmol/L Anion Gap mmol/L BUN (9-20) mg/dL Creatinine (0.66-1.25) mg/dL Est GFR (CKD-EPI)AfAm (>60 ml/min/1.73 sqM) Est GFR (CKD-EPI)NonAf (>60 ml/min/1.73 sqM) Glucose (74-99) mg/dL POC Glucose (mg/dL) 164 H (70-110) mg/dL POC Glu Grade Recorder ID September Calcium (8.4-10.2) mg/dL Magnesium (1.6-2.3) mg/dL Total Bilirubin (0.2-1.3) mg/dL AST (17-59) U/L ALT (4-49) U/L Alkaline Phosphatase (38-126) U/L Total Protein (6.3-8.2) g/dL Albumin (3.5-5.0) g/dL Urine Color Urine Appearance (Clear) Urine pH (5.0-8.0) Ur Specific Whiteside (1.001-1.035) Urine Protein (Negative) Urine Glucose (UA) (Negative) Urine Ketones (Negative) Urine Blood (Negative) Urine Nitrite (Negative) Urine Bilirubin (Negative) Urine Urobilinogen (<2.0) mg/dL Ur Leukocyte Esterase (Negative) Urine RBC (0-5) /hpf Urine WBC (0-5) /hpf Ur Squamous Epith Cells (0-4) /hpf Hyaline Casts (0-2) /lpf Urine Mucus (None) /hpf 03/11/24 03/11/24 Range/Units 11:26 11:40 WBC (3.8-10.6) k/uL RBC (4.30-5.90) m/uL Hgb (13.0-17.5) gm/dL Hct (39.0-53.0) % MCV (80.0-100.0) fL MCH (25.0-35.0) pg MCHC (31.0-37.0) g/dL RDW (11.5-15.5) % Plt Count (150-450) k/uL MPV Neutrophils % % Lymphocytes % % Monocytes % % Eosinophils % % Basophils % % Neutrophils # (1.3-7.7) k/uL Lymphocytes # (1.0-4.8) k/uL Monocytes # (0-1.0) k/uL Eosinophils # (0-0.7) k/uL Basophils # (0-0.2) k/uL PT (10.0-12.5) sec INR (<1.2) APTT (22.0-30.0) sec Sodium 138 (137-145) mmol/L Potassium 3.7 (3.5-5.1) mmol/L Chloride 105 (98-107) mmol/L Carbon Dioxide 26 (22-30) mmol/L Anion Gap 7 mmol/L BUN 12 (9-20) mg/dL Creatinine 0.73 (0.66-1.25) mg/dL Est GFR (CKD-EPI)AfAm >90 (>60 ml/min/1.73 sqM) Est GFR (CKD-EPI)NonAf >90 (>60 ml/min/1.73 sqM) Glucose 158 H (74-99) mg/dL POC Glucose (mg/dL) (70-110) mg/dL POC Glu Grade Recorder ID Calcium 9.6 (8.4-10.2) mg/dL Magnesium 2.2 (1.6-2.3) mg/dL Total Bilirubin 0.6 (0.2-1.3) mg/dL AST 25 (17-59) U/L ALT 24 (4-49) U/L Alkaline Phosphatase 84 (38-126) U/L Total Protein 7.1 (6.3-8.2) g/dL Albumin 4.2 (3.5-5.0) g/dL Urine Color Yellow Urine Appearance Clear (Clear) Urine pH 5.5 (5.0-8.0) Ur Specific Whiteside 1.026 (1.001-1.035) Urine Protein 1+ H (Negative) Urine Glucose (UA) Negative (Negative) Urine Ketones 1+ H (Negative) Urine Blood Negative (Negative) Urine Nitrite Negative (Negative) Urine Bilirubin Negative (Negative) Urine Urobilinogen <2.0 (<2.0) mg/dL Ur Leukocyte Esterase Negative (Negative) Urine RBC 1 (0-5) /hpf Urine WBC 1 (0-5) /hpf Ur Squamous Epith Cells 1 (0-4) /hpf Hyaline Casts 7 H (0-2) /lpf Urine Mucus Many H (None) /hpf Disposition Clinical Impression: Dehydration, Weakness Disposition: HOME SELF-CARE Condition: Good Instructions (If sedation given, give patient instructions): Dehydration (DC) Additional Instructions: Return to the emergency department for any new or worsening symptoms. Recommend follow-up with your primary care provider within the next week for further evaluation. Is patient prescribed a controlled substance at d/c from ED?: No Referrals: None,Stated [Primary Care Provider] - 1-2 days Time of Disposition: 12:38
[2024-03-11] MEDS: SODIUM CHLORIDE 0.9% 1,000 ML IV ONE (11:30)
[2024-03-11 11:41] LABS: Basophils # (A) 0.1 k/uL (0-0.2); Basophils % (A) 0 %; Eosinophils # (A) 0.4 k/uL (0-0.7); Eosinophils % (A) 3 %; HCT 42.2 % (39.0-53.0); HGB 13.9 gm/dL (13.0-17.5); Lymphocytes # (A) 2.2 k/uL (1.0-4.8); Lymphocytes % (A) 17 %; MCH 26.2 pg (25.0-35.0); MCHC 32.9 g/dL (31.0-37.0); MCV 79.7 fL (80.0-100.0); Mean Platelet Volume 8.4; Monocytes # (A) 0.7 k/uL (0-1.0); Monocytes % (A) 5 %; Neutrophils # (A) 9.4 k/uL (1.3-7.7); Neutrophils % (A) 74 %; Platelet Count 230 k/uL (150-450); RBC 5.29 m/uL (4.30-5.90); RDW 15.2 % (11.5-15.5); WBC 12.8 k/uL (3.8-10.6)
[2024-03-11] MEDS: levETIRAcetam IV 500 MG/5 ML VIAL IVP STA (11:41)
[2024-03-11 11:54] LABS: ALT 24 U/L (4-49); AST 25 U/L (17-59); African American GFR (CKD) >90 (>60 ml/min/1.73 sqM); Albumin 4.2 g/dL (3.5-5.0); Alkaline Phosphatase 84 U/L (38-126); Anion Gap 7 mmol/L; Blood Urea Nitrogen 12 mg/dL (9-20); Calcium 9.6 mg/dL (8.4-10.2); Carbon Dioxide 26 mmol/L (22-30); Chloride 105 mmol/L (98-107); Glucose 158 mg/dL (74-99); Magnesium 2.2 mg/dL (1.6-2.3); Non-African American GFR(CKD) >90 (>60 ml/min/1.73 sqM); Potassium 3.7 mmol/L (3.5-5.1); Sodium 138 mmol/L (137-145); Total Bilirubin 0.6 mg/dL (0.2-1.3); Total Protein 7.1 g/dL (6.3-8.2)
[2024-03-11 12:16] LABS: INR 0.9 (<1.2); Partial Thromboplastin Time 31.2 sec (22.0-30.0)
--- NOTE | 2024-03-11 12:18 | CT ---
EXAMINATION TYPE: CT brain wo con CT DLP: 1161.4 mGycm, Automated exposure control for dose reduction was used. DATE OF EXAM: 03/11/2024 12:12 PM COMPARISON: Prior CT Brain from 12/02/2010 . CLINICAL INDICATION:Male, 38 years old with history of AMS, hx of possible seizure, weakness, seizure , AMS TECHNIQUE: Brain: Multiple axial CT images of the brain were obtained without IV contrast. . Coronal and sagitta l reformats reviewed. FINDINGS: Brain: Extra-axial spaces: No abnormal extra-axial fluid collections. Anterior falx calcification. Ventricular system: Within normal limits Cerebral parenchyma: No acute intraparenchymal hemorrhage or mass effect. The roa-white junction is well differentiated. Cerebellum: Unremarkable. Mass effect: No evidence of midline shift. Intracranial vasculature: unremarkable Soft tissues: Normal. Calvarium/osseous structures: No depressed skull fracture. Paranasal sinuses and mastoid air cells: Mastoid air cells are clear. Mild mucosal thickening of the left frontal sinus and right inferior maxillary sinus. Visualized orbits: Orbital contents are intact. IMPRESSION: No acute intracranial process. No significant change from prior exam. [facility], , 03/11/2024 12:15 PM
[2024-03-11 12:23] LABS: Appearance,Urine Clear (Clear); Bilirubin,Urine Negative (Negative); Blood,Urine Negative (Negative); Color,Urine Yellow; Glucose,Urine (UA) Negative (Negative); Hyaline Casts,Urine 7 /lpf (0-2); Ketones,Urine 1+ (Negative); Leukocyte Esterase,Urine Negative (Negative); Mucus,Urine Many /hpf; Nitrite,Urine Negative (Negative); PH, Urine 5.5 (5.0-8.0); Protein,Urine 1+ (Negative); RBC,Urine 1 /hpf (0-5); Specific Gravity,Urine 1.026 (1.001-1.035); Squamous Epithelial Cell,Urine 1 /hpf (0-4); Urobilinogen,Urine <2.0 mg/dL (<2.0); WBC,Urine 1 /hpf (0-5)
[2024-03-11] MEDS: ONDANSETRON 4 MG/2 ML VIAL IVP STA (13:27)
[2024-03-11 14:48] VITALS: BP 145/99; PULSE 98; TEMP 99
== END 2024-03-11 14:31 | disposition home or self-care (01) ==
LOC: EC 10:01
DX: R41.82 Altered mental status, unspecified
CPT/HCPCS: 36415; 70450; 80053; 81001; 83735; 85025; 85610; 85730; 93005; 96361; 96374; 96375; 99285

== ENCOUNTER 2024-09-20 20:31 | Emergency (ER) | payer MEDICARE, OTHER ==
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
[2024-09-20] MEDS: ACETAMINOPHEN TAB 500 MG TAB PO STA (22:42)
[2024-09-21 01:11] VITALS: BP 138/92; PULSE 96; RESP 19; TEMP 98.8
== END 2024-09-21 01:11 | disposition home or self-care (01) ==
LOC: EC 20:31
DX: F43.21 Adjustment disorder with depressed mood (principal)
CPT/HCPCS: 82075; 99285

== ENCOUNTER 2024-11-07 13:18 | Emergency (ER) | payer MEDICARE, OTHER ==
[2024-11-07 13:30] VITALS: RESP 18; TEMP 98.4
--- NOTE | 2024-11-07 13:39 | ED ---
General Adult HPI - General Chief complaint: Headache Stated complaint: Headache Time Seen by Provider: 11/07/24 13:29 Source: patient, EMS, RN notes reviewed, old records reviewed Mode of arrival: EMS Limitations: altered mental status - History of Present Illness Initial comments: 39-year-old male presenting for evaluation. Patient complains of mild headache which has been present today. This was gradual in onset. Patient is developmentally delayed with cognitive impairment. His mother is currently in the emergency department and paramedics believe that this is why he came to the hospital. He states he has not eaten today and he states he is hungry. He has had no vomiting. Vital signs were stable during transport. - Related Data Home Medications Medication Instructions Recorded Confirmed Nitroglycerin Sl Tabs [Nitrostat] 0.4 mg SUBLINGUAL Q5M PRN 01/22/22 03/11/24 OLANZapine 20 mg PO HS 01/22/22 03/11/24 metFORMIN HCL [Glucophage] 1,000 mg PO BID 01/22/22 03/11/24 Benztropine Mesylate [Cogentin] 1 mg PO BID 03/11/24 03/11/24 Escitalopram [Lexapro] 10 mg PO DAILY 03/11/24 03/11/24 Simvastatin [Zocor] 20 mg PO HS 03/11/24 03/11/24 clonazePAM [KlonoPIN] 1 mg PO TID 03/11/24 03/11/24 haloperidoL [Haldol] 10 mg PO BID 03/11/24 03/11/24 Allergies Allergy/AdvReac Type Severity Reaction Status Date / Time No Known Allergies Allergy Verified 03/11/24 12:25 Review of Systems ROS Statement: Those systems with pertinent positive or pertinent negative responses have been documented in the HPI. ROS Other: All systems not noted in ROS Statement are negative. 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 History of Any Multi-Drug Resistant Organisms: None Reported Past Surgical History: No Surgical Hx Reported Past Psychological History: No Psychological Hx Reported Smoking Status: Never smoker Past Alcohol Use History: None Reported Past Drug Use History: None Reported General Exam Limitations: altered mental status General appearance: alert, in no apparent distress Head exam: Present: atraumatic, normocephalic Eye exam: Present: normal appearance, PERRL ENT exam: Present: normal exam Neck exam: Present: normal inspection. Absent: tenderness, meningismus Respiratory exam: Present: normal lung sounds bilaterally. Absent: respiratory distress, wheezes Cardiovascular Exam: Present: regular rate, normal rhythm GI/Abdominal exam: Present: soft. Absent: distended, tenderness, guarding Extremities exam: Present: normal inspection, normal capillary refill Neurological exam: Present: alert, oriented X3. Absent: CN II-XII intact, motor sensory deficit Psychiatric exam: Present: normal affect, normal mood Skin exam: Present: warm, dry, intact. Absent: cyanosis, diaphoretic Course Vital Signs 11/07/24 13:20 Temperature 98.4 F Pulse Rate 81 Respiratory 18 Rate Blood Pressure 135/88 O2 Sat by Pulse 94 L Oximetry Medical Decision Making - Medical Decision Making Was pt. sent in by a medical professional or institution ([facility] Arre[facility], [facility], urgent care, hospital, or shelter...) When possible be specific @ -No Did you speak to anyone other than the patient for history (EMS, parent, family, police, friend...)? What history was obtained from this source @ -No Did you review nursing and triage notes (agree or disagree)? Why? @ -I reviewed and agree with nursing and triage notes Were old charts reviewed (outside hosp., previous admission, EMS record, old EKG, old radiological studies, urgent care reports/EKG's, shelter records)? Report findings @ -No old charts were reviewed Differential Headache: Migraine, tension, cluster, carbon monoxide, central venous thrombosis, pension karma temporal arteritis, acute closure glaucoma, intercranial hemorrhage, mastoiditis, sinusitis, head injury, this is not meant to be an all-inclusive list. EKG interpreted by me (3pts min.). @ -As above X-rays interpreted by me (1pt min.). @ -None done CT interpreted by me (1pt min.). @ -None done U/S interpreted by me (1pt. min.). @ -None done What testing was considered but not performed or refused? (CT, X-rays, U/S, labs)? Why? @ -None What meds were considered but not given or refused? Why? @ -None Did you discuss the management of the patient with other professionals (professionals i.e. , PA, ELECTRO PLATER, lab, RT, psych nurse, delinquency prevention social worker, communications manager, teacher, deck officer, case packer and sealer)? Give summary @ -No Was smoking cessation discussed for >3mins.? @ -No Was critical care preformed (if so, how long)? @ -No Were there social determinants of health that impacted care today? How? (Homelessness, low income, unemployed, alcoholism, drug addiction, transportation, low edu. Level, literacy, decrease access to med. care, intermediate, rehab)? @ -No Was there de-escalation of care discussed even if they declined (Discuss DNR or withdrawal of care, Hospice)? DNR status @ -No What co-morbidities impacted this encounter? (DM, HTN, Smoking, COPD, CAD, Cancer, CVA, ARF, Chemo, Hep., AIDS, mental health diagnosis, sleep apnea, morbid obesity)? @ -Cognitive delay Was patient admitted / discharged? Hospital course, mention meds given and route, prescriptions, significant lab abnormalities, going to OR and other pertinent info. @ 39-year-old male who has presented due to the fact that his mother is currently in the emergency department and she is a primary caregiver. He states that he has headache, no distress. He also states he is hungry and has not eaten today. I suspect that he wanted to be close to his mother. Further history will be obtained when additional family members have arrived. Undiagnosed new problem with uncertain prognosis? @ -No Drug Therapy requiring intensive monitoring for toxicity (Heparin, Nitro, Insulin, Cardizem)? @ -No Were any procedures done? @ -No Diagnosis/symptom? @ -[Headache Acute, or Chronic, or Acute on Chronic? @ -Acute Uncomplicated (without systemic symptoms) or Complicated (systemic symptoms)? @ -[default Side effects of treatment? @ -No Exacerbation, Progression, or Severe Exacerbation? @ -No Poses a threat to life or bodily function? How? (Chest pain, [place], [place], pneumonia, PE, COPD, DKA, ARF, appy, cholecystitis, CVA, Diverticulitis, Homicidal, Suicidal, threat to staff... and all critical care pts) @ -No Disposition Clinical Impression: Headache Disposition: HOME SELF-CARE Condition: Fair Instructions (If sedation given, give patient instructions): Acute Headache (ED) Is patient prescribed a controlled substance at d/c from ED?: No Referrals: None,Stated [Primary Care Provider] - 1-2 days Time of Disposition: 13:39
[2024-11-07] MEDS: ACETAMINOPHEN TAB 500 MG TAB PO STA (13:43)
[2024-11-07 14:10] VITALS: BP 136/82; PULSE 76
== END 2024-11-07 14:07 | disposition home or self-care (01) ==
LOC: EC 13:18
DX: R51.9 Headache, unspecified (principal)
CPT/HCPCS: 99284